=== PATIENT | male | born 1965 | race Caucasian/White ===

== ENCOUNTER → 2022-11-08 08:15 | Outpatient (REF) | payer BC, SELFPAY ==
--- NOTE | 2022-11-08 08:20 | CA_ITS ---
Transthoracic Echocardiogram Patient (Last, First, Middle): Vikash Barnes, Gender: Male Date of : 1965 Age: 57 Procedure Date: 11/08/2022 Procedure Type: Transthoracic Echocardiogram Location: [facility] Height: 170.18 cm Weight: 90.72 kg BSA: 2.02 m2 Heart Rate: 62 bpm BP: 100 / 55 mmHg Hog Ribber: KATHY Referring MD: Nataliya Valdes MD Symptoms: PUL HTN 127.20 Study Quality: Fair ECG Rhythm: Sinus Conclusions: - The left ventricular systolic function is normal. The calculated ejection fraction is 55% by biplane method. - There is mildly decreased right ventricular systolic function. - No obvious valvular pathology seen on this study. - There is no evidence of pulmonary hypertension. Findings Left Ventricle Normal left ventricular cavity size. There is mildly increased left ventricular wall thickness. The left ventricular systolic function is normal. The calculated ejection fraction is 55% by biplane method. There is no evidence of regional wall motion abnormalities. Diastolic function is normal for age. Right Ventricle Normal right ventricular cavity size. There is mildly decreased right ventricular systolic function. Atria Both atria are normal in size. Aortic Valve There is a normal trileaflet aortic valve. There is no aortic valve stenosis. There is no aortic valve regurgitation. Mitral Valve The mitral valve appears normal. There is trace mitral valve regurgitation. There is no mitral valve stenosis. Pulmonic Valve The pulmonic valve is likely normal. Tricuspid Valve Normal tricuspid valve structure. There is trace tricuspid valve regurgitation. There is no evidence of pulmonary hypertension. Great Vessels The asc aorta is normal in size. Venous The inferior vena cava is normal in size and collapses greater than 50% with inspiration. Pericardium/Pleural There is no evidence of pericardial effusion. Prior Study Comparison Changes noted compared to prior study dated: 04/07/2020. slight change in right ventricular function. Recommendations, Care & Conclusions No obvious valvular pathology seen on this study. Measurements 2D Linear Measurements IVSd: 1.14 0.6-0.9/0.6-1.0 cm LVIDd: 5.46 3.9-5.3/4.2-5.9 cm LVIDd Index: 2.70 2.4-3.2/2.2-3.1 cm/m2 LVIDs: 3.65 2.0-3.6 cm LVPWd: 1.19 0.7-1.1 cm LA Diam: 4.10 2.7-3.8/3.0-4.0 cm LAIDs Index: 2.03 1.5-2.3 cm/m2 LV Mass: 322.36 67-162/88-224 g LV Mass Index: 159.58 43-95/49-115 g/m2 LVOT Diam: 2.00 3.0+(-)1.3 cm 2D Systolic Function EF 4C: 54.00 >55% EF 2C: 56.10 >55% EF BiP: 55.30 >55% Mitral Valve MV Pk E: 0.65 MV PK A: 0.54 MV Decel Time: 191.00 E/A: 1.20 E'Lateral: 11.60 E'Medial: 8.92 E/E' Med: 7.30 E/E' Lat: 5.60 PHT: 56.00 MVA PHT: 3.93 Decel [place]: 3.41 Aortic Valve AoV Pk Yossi: 1.21 AoV Mn Yossi: 0.84 AoV VTI: 0.26 AoV Pk Grad: 6.00 Aov Mn Grad: 3.00 BAHMAN Cont.VTI: 2.70 LVOT LVOT Pk Yossi: 1.19 LVOT Mn Yossi: 0.72 LVOT VTI: 0.22 LVOT Pk Grad: 6.00 LVOT Mn Grad: 3.00 LVOT Diam: 2.00 LVOT Area: 3.14 Diastolic Function MV Pk E: 0.65 MV Pk A: 0.54 E/A: 1.20 E'Medial: 8.92 E/E' Med: 7.30 E' Laterial: 11.60 E/E' Lat: 5.60 Right Ventricle TAPSE (mm): 16.50 TVS' Yossi: 9.79 Tricuspid Valve TR Pk Yossi: 1.80 TR Pk Grad: 13.00 RA Press: 3.00 RVSP: 16.00 Great Vessels Aorta Sinus of Valsalva: 3.50 2.0-3.5 cm Ao Asc: 3.10 2.1-3.4 cm Pulmonary Valve PV Pk Yossi: 0.91 Peak PV Grad: 3.00 Updated in Other Vendor System with Status of Final Tremayne Peralta MD electronically signed on 11/09/2022 12:45:46 PM with status of Final
== END ==
LOC: HO.CARD 08:15
PROVIDERS: PCP Internal Medicine; Visit Provider Internal Medicine Pulmonary Disease
DX: I27.20 Pulmonary hypertension, unspecified (principal)
CPT/HCPCS: 93306